=== PATIENT | female | born 1955 | race Caucasian/White ===

== ENCOUNTER 2019-03-11 11:44 | Emergency (ER) | payer OTHER ==
[~2019-03-11] VITALS: Ht 154.9 cm; Wt 49.9 kg
[~2019-03-11 11:44] MED LIST: Armour Thyroid90 MG PO; BUDE6HFA INH; CYCL10 PO; LISI5 PO; ONDA4ODT MM
[2019-03-11] MEDS ORDERED: Zithromax250 MG PO (12:36)
== END 2019-03-11 12:52 | disposition home or self-care (01) ==
LOC: ER 11:44
DX: R05 Cough (principal); Z88.5 Allergy status to narcotic agent; Z79.899 Other long term (current) drug therapy; I10 Essential (primary) hypertension; F17.200 Nicotine dependence, unspecified, uncomplicated
CPT/HCPCS: 71046; 99283-25